=== PATIENT | male | born 1960 | race Caucasian/White ===

== ENCOUNTER 2017-10-25 14:07 | Inpatient (IN) | payer MEDICAID ==
[~2017-10-25] VITALS: Ht 175.3 cm; Wt 113.6 kg
[2017-10-25 16:12] LABS: Basophils # (auto) 0 uL; Basophils % (auto) 0.8 % (0.0-2.0); Eosinophils # (auto) 0.2 uL; Eosinophils % (auto) 6.7 % (0.0-7.0); Hematocrit 37.2 % (41.0-53.0); Hemoglobin 12.5 g/dL (13.5-17.5); Lymphocytes # (auto) 0.8 uL; Lymphocytes % (auto) 22.1 % (10.0-50.0); Mean Corpuscular Hemoglobin 33.1 pg (28.0-32.0); Mean Corpuscular Hgb Conc. 33.7 g/dL (32.0-36.0); Mean Corpuscular Volume 98.2 fL (80.0-100.0); Monocytes # (auto) 0.5 uL; Monocytes % (auto) 14.4 % (0.0-12.0); Nucleated Red Blood Cells % 0.2 %; Platelet Count (auto) 110 10^3/uL (140-450); Red Blood Cells 3.78 10^6/uL (4.5-5.90); Red Cell Distribution Width 16.6 % (11.8-14.3); White Blood Cell 3.7 10^3/uL (4.4-10.8)
[2017-10-25 16:19] LABS: Albumin 2.6 g/dL (3.4-5.0); BUN/Creatinine Ratio 27.3; Calcium 8.5 mg/dL (8.5-10.1); Magnesium 1.8 mg/dL (1.6-2.6); Potassium 3.9 mmol/L (3.5-5.1)
[2017-10-25 16:27] LABS: Bilirubin, Total 1.7 mg/dL (0.2-1.0); Total Protein 7.2 g/dL (6.4-8.2)
[2017-10-25] MEDS ORDERED: MORPHINE SULFATE 4 MG/ML SYR/VIAL IV PRN (21:00)
[2017-10-25] MEDS ORDERED: LACTULOSE 20Gm/30ML SOLN PO ONE (21:00)
[2017-10-25] MEDS ORDERED: ONDANSETRON HCL 4 MG/2 ML VIAL IV PRN (21:00)
[2017-10-26] MEDS ORDERED: MULTTAB OR (00:29)
[2017-10-26] MEDS ORDERED: MAGN400T5 PO (00:29)
[2017-10-26] MEDS ORDERED: IBUP200C3 PO (00:29)
[2017-10-26] MEDS ORDERED: RANI300T3 PO (00:29)
[2017-10-26 00:36] VITALS: BP 131/68
[2017-10-26 05:00] VITALS: BP 98/63
[2017-10-26 05:58] LABS: Basophils # (auto) 0 uL; Basophils % (auto) 0.8 % (0.0-2.0); Eosinophils # (auto) 0.2 uL; Eosinophils % (auto) 6.8 % (0.0-7.0); Hematocrit 35.2 % (41.0-53.0); Hemoglobin 11.8 g/dL (13.5-17.5); Lymphocytes # (auto) 0.9 uL; Lymphocytes % (auto) 26.9 % (10.0-50.0); Mean Corpuscular Hemoglobin 32.6 pg (28.0-32.0); Mean Corpuscular Hgb Conc. 33.5 g/dL (32.0-36.0); Mean Corpuscular Volume 97.3 fL (80.0-100.0); Monocytes # (auto) 0.5 uL; Neutrophils # (auto) 1.7 uL; Neutrophils % (auto) 49.5 % (37.0-80.0); Platelet Count (auto) 99 10^3/uL (140-450); Red Blood Cells 3.61 10^6/uL (4.5-5.90); Red Cell Distribution Width 16.8 % (11.8-14.3); White Blood Cell 3.4 10^3/uL (4.4-10.8)
[2017-10-26 06:28] LABS: Albumin 2.3 g/dL (3.4-5.0); BUN/Creatinine Ratio 23.9; Bilirubin, Total 1.9 mg/dL (0.2-1.0); Calcium 7.5 mg/dL (8.5-10.1); Potassium 3.7 mmol/L (3.5-5.1); Total Protein 6.5 g/dL (6.4-8.2)
[2017-10-26 09:07] VITALS: BP 101/54
[2017-10-26 10:31] LABS: Urine Bacteria NONE SEEN /hpf (None Seen); Urine Blood Negative /uL (Negative); Urine Mucus FEW (None Seen); Urine Specific Gravity 1.025 (1.001-1.035); Urine WBC 13 /hpf (0 - 3)
[2017-10-26 13:00] VITALS: BP 114/65
[2017-10-26] MEDS ORDERED: IOHEXOL 300 MG/ML 100ML BOTTLE IJ ONE (16:07)
[2017-10-26 17:00] VITALS: BP 139/72
[2017-10-26] MEDS: LACTULOSE 20Gm/30ML SOLN PO SCH ×2 (17:47→23:24)
[2017-10-26 21:45] VITALS: BP 101/59
[2017-10-27 05:00] VITALS: BP 108/57
[2017-10-27] MEDS: LACTULOSE 20Gm/30ML SOLN PO SCH ×2 (05:31→12:58)
[2017-10-27 05:57] LABS: Basophils # (auto) 0 uL; Basophils % (auto) 0.6 % (0.0-2.0); Eosinophils # (auto) 0.2 uL; Eosinophils % (auto) 7.1 % (0.0-7.0); Hematocrit 35.1 % (41.0-53.0); Lymphocytes # (auto) 0.8 uL; Lymphocytes % (auto) 25.2 % (10.0-50.0); Mean Corpuscular Hemoglobin 33.1 pg (28.0-32.0); Mean Corpuscular Hgb Conc. 34.1 g/dL (32.0-36.0); Mean Corpuscular Volume 97.2 fL (80.0-100.0); Monocytes # (auto) 0.6 uL; Monocytes % (auto) 17.1 % (0.0-12.0); Neutrophils # (auto) 1.6 uL; Nucleated Red Blood Cells % 0.2 %; Platelet Count (auto) 94 10^3/uL (140-450); Red Blood Cells 3.61 10^6/uL (4.5-5.90); White Blood Cell 3.3 10^3/uL (4.4-10.8)
[2017-10-27 06:16] LABS: Albumin 2.2 g/dL (3.4-5.0); BUN/Creatinine Ratio 23.2; Calcium 7.7 mg/dL (8.5-10.1); Potassium 3.6 mmol/L (3.5-5.1); Total Protein 6.4 g/dL (6.4-8.2)
[2017-10-27 08:00] VITALS: BP 112/73
[2017-10-27 09:00] VITALS: BP 112/73
[2017-10-27 10:02] LABS: Hepatitis B Core IgM Negative
[2017-10-27 10:03] LABS: Hepatitis A Ab IgM Negative
[2017-10-27 11:41] LABS: Hepatitis B Surface Antigen Positive (Negative)
[2017-10-27 11:42] LABS: Hepatitis C Antibody Positive (Negative)
[2017-10-27 13:00] VITALS: BP 98/65
== END 2017-10-27 14:45 | disposition home or self-care (01) | DRG 433 ==
LOC: ER 14:07 → OVERFLOW 14:08 → WEST WING 21:49
PROVIDERS: ADMIT Nurse Practitioner Family; ATTEND Family Medicine
DX: K70.31 Alcoholic cirrhosis of liver with ascites (principal); K76.6 Portal hypertension; K70.40 Alcoholic hepatic failure without coma; B19.10 Unspecified viral hepatitis B without hepatic coma; R16.0 Hepatomegaly, not elsewhere classified; R16.1 Splenomegaly, not elsewhere classified; B19.20 Unspecified viral hepatitis C without hepatic coma; D64.9 Anemia, unspecified; E66.9 Obesity, unspecified; F10.10 Alcohol abuse, uncomplicated; K59.00 Constipation, unspecified; Z82.49 Family history of ischemic heart disease and other diseases of the circulatory system; Z87.891 Personal history of nicotine dependence; Z88.8 Allergy status to other drugs, medicaments and biological substances; Z68.37 Body mass index [BMI] 37.0-37.9, adult; Z90.89 Acquired absence of other organs
CPT/HCPCS: 36415; 74176; 74178; 80053; 80074; 81001; 82105; 82140; 82150; 82705; 82784; 83516; 83690; 83735; 85025; 86255; 87045; 87493; 87899; 93005; 94761